=== PATIENT | male | born 1955 | race Caucasian/White ===

== ENCOUNTER 2020-08-29 14:14 | Emergency (ER) | payer OTHER ==
[~2020-08-29] VITALS: Ht 177.8 cm; Wt 84.8 kg
[2020-08-29 14:22] VITALS: BP 137/71
[2020-08-29 15:21] LABS: Basophils # (auto) 0.1 10 ^3/uL (0-0.2); Eosinophils # (auto) 0.1 10 ^3/uL (0-0.8); Eosinophils % (auto) 1.9 % (0.0-7.0); Hemoglobin 15.2 g/dL (13.5-17.5); Lymphocytes # (auto) 2.1 10 ^3/uL (0.4-5.4)
[2020-08-29 15:22] LABS: Basophils % (auto) 1.2 % (0.0-2.0); Hematocrit 42.2 % (41.0-53.0); Lymphocytes % (auto) 36.8 % (10.0-50.0); Mean Corpuscular Hemoglobin 36.4 pg (28.0-32.0); Mean Corpuscular Hgb Conc. 35.9 g/dL (32.0-36.0); Mean Corpuscular Volume 101.5 fL (80.0-100.0); Monocytes # (auto) 0.6 10 ^3/uL (0-1.3); Monocytes % (auto) 10.9 % (0.0-12.0); Neutrophils # (auto) 2.9 10 ^3/uL (1.6-8.6); Neutrophils % (auto) 49.2 % (37.0-80.0); Nucleated Red Blood Cells % 0.3 %; Platelet Count (auto) 186 10^3/uL (140-450); Red Blood Cells 4.16 10^6/uL (4.5-5.90); Red Cell Distribution Width 12.4 % (11.8-14.3); White Blood Cell 5.8 10^3/uL (4.4-10.8)
[2020-08-29 15:37] LABS: Albumin 3.7 g/dL (3.4-5.0); Anion Gap 5 (5-15); Blood Urea Nitrogen 19 mg/dL (7-18); Calcium 8.6 mg/dL (8.5-10.1); Carbon Dioxide 24 mmol/L (21-32); Chloride 108 mmol/L (98-107); Glucose 92 mg/dL (74-106); Magnesium 2.3 mg/dL (1.6-2.6); Potassium 4.2 mmol/L (3.5-5.1); Sodium 137 mmol/L (136-145)
[2020-08-29 15:43] LABS: Alanine Aminotransferase 229 U/L (16-61); Alkaline Phosphatase 87 U/L (45-117); Aspartate Aminotransferase 134 U/L (15-37); BUN/Creatinine Ratio 19.2; Bilirubin, Total 0.9 mg/dL (0.2-1.0); GFR African American 98 mL/min; GFR Non-African American 81 mL/min; INR 1.01 (0.9-1.15); Lactate Dehydrogenase 319 U/L (87-241)
== END 2020-08-29 17:32 | disposition home or self-care (01) ==
LOC: ER 14:14
DX: R55 Syncope and collapse (principal); F17.210 Nicotine dependence, cigarettes, uncomplicated; I10 Essential (primary) hypertension
CPT/HCPCS: 36415; 71046; 80053; 83605; 83615; 83735; 83880; 84484; 85025; 85610; 93005

== ENCOUNTER 2021-06-30 11:15 | Inpatient (IN) | payer BC, OTHER ==
[~2021-06-30] VITALS: Ht 177.8 cm; Wt 79.3 kg
[2021-06-30 12:24] LABS: Nucleated Red Blood Cells % 0.3 %; Red Blood Cells 4.21 10^6/uL (4.5-5.90)
[2021-06-30 12:26] LABS: Basophils # (auto) 0.1 10 ^3/uL (0-0.2); Basophils % (auto) 1.1 % (0.0-2.0); Eosinophils # (auto) 0.1 10 ^3/uL (0-0.8); Eosinophils % (auto) 1.2 % (0.0-7.0); Hematocrit 43.6 % (41.0-53.0); Lymphocytes % (auto) 30.1 % (10.0-50.0); Mean Corpuscular Hemoglobin 35.6 pg (28.0-32.0); Mean Corpuscular Hgb Conc. 34.5 g/dL (32.0-36.0); Mean Corpuscular Volume 103.4 fL (80.0-100.0); Monocytes # (auto) 0.7 10 ^3/uL (0-1.3); Monocytes % (auto) 10.1 % (0.0-12.0); Neutrophils # (auto) 3.9 10 ^3/uL (1.6-8.6); Neutrophils % (auto) 57.5 % (37.0-80.0); Red Cell Distribution Width 12.3 % (11.8-14.3); White Blood Cell 6.8 10^3/uL (4.4-10.8)
[2021-06-30 12:36] LABS: Potassium 4.1 mmol/L (3.5-5.1)
[2021-06-30 12:46] LABS: Albumin 3.6 g/dL (3.4-5.0); BUN/Creatinine Ratio 23.3; Bilirubin, Total 1.3 mg/dL (0.2-1.0); Total Protein 7.9 g/dL (6.4-8.2)
[2021-06-30] MEDS ORDERED: MORPHINE SULFATE INJECTION 2 MG/ML SYRG IV PRN ×3 (13:15→15:15)
[2021-06-30] MEDS ORDERED: NITROGLYCERIN 0.4 MG SL TAB SL PRN ×2 (13:15→15:15)
[2021-06-30] MEDS ORDERED: HEPARIN 1,000 UNITS/ml 1ML VIAL IV ONE (14:00)
[2021-06-30] MEDS ORDERED: ENAL10TA13 PO (14:33)
[2021-06-30] MEDS ORDERED: FLUT50SP NAS (14:33)
[2021-06-30] MEDS ORDERED: POM INH (14:33)
[2021-06-30] MEDS ORDERED: POM PO (14:33)
[2021-06-30] MEDS ORDERED: CLINDAMYCIN 600MG IV 50 ML IV ONE (14:45)
[2021-06-30] MEDS ORDERED: METOPROLOL SUCCINATE XL 50 MG TAB PO ONE (14:45)
[2021-06-30] MEDS ORDERED: ATORVASTATIN 20 MG TAB PO ONE (14:45)
[2021-06-30] MEDS ORDERED: BUDESONIDE (INHALATION) 0.5 MG/2 ML NEB NEB ONE (14:45)
[2021-06-30] MEDS ORDERED: ACETYLCYSTEINE 10 %(100MG/ML) SOL 4ML NEB ONE (14:45)
[2021-06-30] MEDS ORDERED: BENAZEPRIL HCL 10 MG TAB PO ONE (14:45)
[2021-06-30] MEDS ORDERED: SODIUM CHLORIDE 0.9% 500 ML IV ONE (15:00)
[2021-06-30] MEDS ORDERED: HYDROcodone-ACET 5/325MG TAB PO PRN (15:15)
[2021-06-30] MEDS ORDERED: DOCUSATE SOD 100 MG CAP PO PRN (15:15)
[2021-06-30] MEDS ORDERED: ALBUTEROL SULF 2.5 MG/0.5ML(0.5%) NEB SOLN NEB ONE (15:15)
[2021-06-30] MEDS ORDERED: ALUM & MAG HYDROX-SIMETH LIQ(MAALOX) 30 ML PO PRN (15:15)
[2021-06-30] MEDS ORDERED: ACETAMINOPHEN 325 MG TAB PO PRN (15:15)
[2021-06-30] MEDS ORDERED: ONDANSETRON HCL 4 MG/2 ML VIAL IV PRN (15:15)
[2021-06-30] MEDS ORDERED: LORazepam 0.5 MG TAB PO PRN (15:15)
[2021-06-30] MEDS ORDERED: IPRATROPIUM BROM 0.5 MG/2.5ML INH SOL ONE (15:19)
[2021-06-30] MEDS ORDERED: BUDESONIDE (INHALATION) 0.5 MG/2 ML NEB ONE (15:19)
[2021-06-30] MEDS ORDERED: ACETYLCYSTEINE 10 %(100MG/ML) SOL 4ML ONE (15:19)
[2021-06-30 15:20] VITALS: BP 119/83
[2021-06-30] MEDS ORDERED: IOHEXOL 350 MG/ML 100ML IJ ONE ×2 (15:53→18:52)
[2021-06-30] MEDS ORDERED: cefTRIAXone 1GM/50ML D5W 50 ML IV ONE (16:00)
[2021-06-30] MEDS: FUROSEMIDE 20 MG/2 ML VIAL IV SCH (18:00)
[2021-06-30] MEDS: SODIUM CHLORIDE 0.9% 1,000 ML IV SCH (19:01)
[2021-06-30] MEDS: CLINDAMYCIN 600MG IV 50 ML IV SCH (21:01)
[2021-06-30] MEDS: POTASSIUM CHL 20 Meq TABLET PO SCH (21:02)
[2021-06-30] MEDS: FAMOTIDINE (10MG/ML) 2ML VL IV SCH (21:02)
[2021-06-30] MEDS: ATORVASTATIN 20 MG TAB PO SCH (21:02)
[2021-07-01] MEDS: IPRATROPIUM BROM 0.5 MG/2.5ML INH SOL NEB SCH ×7 (02:00→23:34)
[2021-07-01 04:20] LABS: Urine Bacteria NONE SEEN /hpf (None Seen); Urine Blood Negative /uL (Negative); Urine Specific Gravity 1.025 (1.001-1.035); Urine WBC 1 /hpf (0 - 3)
[2021-07-01 04:28] LABS: Amphetamine Screen, Urine NEGATIVE (NEGATIVE); Barbiturate Scree,Urine NEGATIVE (NEGATIVE); Benzodiazephine Screen, Urine NEGATIVE (NEGATIVE); Cannabinoid Screen, Urine NEGATIVE (NEGATIVE); Cocaine Screen, Urine NEGATIVE (NEGATIVE); Opiate Scree,Urine NEGATIVE (NEGATIVE); Phencyclidine Screen, Urine NEGATIVE (NEGATIVE)
[2021-07-01] MEDS: BUDESONIDE (INHALATION) 0.5 MG/2 ML NEB NEB SCH ×3 (04:37→23:34)
[2021-07-01] MEDS: ACETYLCYSTEINE 10 %(100MG/ML) SOL 4ML NEB SCH ×4 (04:38→19:24)
[2021-07-01 04:47] LABS: Alcohol, Urine < 3.0 mg/dL (0-10)
[2021-07-01 05:20] VITALS: BP 103/68
[2021-07-01 05:30] VITALS: BP 103/68
[2021-07-01] MEDS: ENOXAPARIN SOD 80 MG/0.8ML SYRINGE SC SCH ×2 (05:59→17:43)
[2021-07-01] MEDS: CLINDAMYCIN 600MG IV 50 ML IV SCH ×3 (05:59→21:30)
[2021-07-01] MEDS: FUROSEMIDE 20 MG/2 ML VIAL IV SCH ×2 (06:00→17:45)
[2021-07-01 08:51] VITALS: BP 104/66
[2021-07-01] MEDS: FAMOTIDINE (10MG/ML) 2ML VL IV SCH ×2 (09:17→21:31)
[2021-07-01] MEDS: ASPirin 81 mg TAB PO SCH (09:17)
[2021-07-01] MEDS: METOPROLOL SUCCINATE XL 50 MG TAB PO SCH (09:18)
[2021-07-01] MEDS: BENAZEPRIL HCL 10 MG TAB PO SCH (09:19)
[2021-07-01] MEDS: POTASSIUM CHL 20 Meq TABLET PO SCH ×2 (09:19→21:31)
[2021-07-01] MEDS: cefTRIAXone 1GM/50ML D5W 50 ML IV SCH (09:20)
[2021-07-01 09:59] LABS: Eosinophils # (auto) 0.1 10 ^3/uL (0-0.8); Nucleated Red Blood Cells % 0.1 %
[2021-07-01 10:01] LABS: Basophils # (auto) 0.1 10 ^3/uL (0-0.2); Basophils % (auto) 2.3 % (0.0-2.0); Eosinophils % (auto) 2.4 % (0.0-7.0); Hematocrit 39.6 % (41.0-53.0); Hemoglobin 13.9 g/dL (13.5-17.5); Lymphocytes # (auto) 1.5 10 ^3/uL (0.4-5.4); Lymphocytes % (auto) 33.5 % (10.0-50.0); Mean Corpuscular Hemoglobin 35.9 pg (28.0-32.0); Mean Corpuscular Volume 102.6 fL (80.0-100.0); Monocytes # (auto) 0.6 10 ^3/uL (0-1.3); Neutrophils # (auto) 2.2 10 ^3/uL (1.6-8.6); Neutrophils % (auto) 48.8 % (37.0-80.0); Red Blood Cells 3.86 10^6/uL (4.5-5.90); Red Cell Distribution Width 12.3 % (11.8-14.3); White Blood Cell 4.5 10^3/uL (4.4-10.8)
[2021-07-01 10:14] LABS: INR 1.1 (0.9-1.15); Partial Thromboplastin Time 34.1 sec (23.6-33.0)
[2021-07-01 10:17] LABS: Albumin 3.1 g/dL (3.4-5.0); Calcium 8.8 mg/dL (8.5-10.1); Magnesium 2.4 mg/dL (1.6-2.6); Potassium 4.2 mmol/L (3.5-5.1)
[2021-07-01 10:23] LABS: Bilirubin, Total 1.4 mg/dL (0.2-1.0); Phosphorus 3.8 mg/dL (2.5-4.90); Total Protein 7.2 g/dL (6.4-8.2)
[2021-07-01 13:00] VITALS: BP 91/63
[2021-07-01] MEDS: SODIUM CHLORIDE 0.9% 1,000 ML IV SCH (15:15)
[2021-07-01 16:47] VITALS: BP 116/74
[2021-07-01] MEDS: ATORVASTATIN 20 MG TAB PO SCH (21:31)
[2021-07-01 22:00] VITALS: BP 98/65
[2021-07-02] MEDS: IPRATROPIUM BROM 0.5 MG/2.5ML INH SOL NEB SCH ×6 (02:00→22:55)
[2021-07-02 05:00] VITALS: BP 105/66
[2021-07-02] MEDS: ENOXAPARIN SOD 80 MG/0.8ML SYRINGE SC SCH ×2 (06:07→17:25)
[2021-07-02] MEDS: CLINDAMYCIN 600MG IV 50 ML IV SCH ×3 (06:07→22:22)
[2021-07-02] MEDS: FUROSEMIDE 20 MG/2 ML VIAL IV SCH ×2 (06:08→17:27)
[2021-07-02] MEDS: ACETYLCYSTEINE 10 %(100MG/ML) SOL 4ML NEB SCH ×3 (06:39→18:41)
[2021-07-02] MEDS: BUDESONIDE (INHALATION) 0.5 MG/2 ML NEB NEB SCH ×2 (06:39→18:41)
[2021-07-02 09:00] VITALS: BP 102/68
[2021-07-02] MEDS: cefTRIAXone 1GM/50ML D5W 50 ML IV SCH (09:14)
[2021-07-02] MEDS: POTASSIUM CHL 20 Meq TABLET PO SCH ×2 (09:15→22:23)
[2021-07-02] MEDS: ASPirin 81 mg TAB PO SCH (09:15)
[2021-07-02] MEDS: FAMOTIDINE (10MG/ML) 2ML VL IV SCH ×2 (09:15→22:22)
[2021-07-02] MEDS: BENAZEPRIL HCL 10 MG TAB PO SCH (09:27)
[2021-07-02] MEDS: METOPROLOL SUCCINATE XL 50 MG TAB PO SCH (09:27)
[2021-07-02 13:00] VITALS: BP 112/74
[2021-07-02] MEDS: SODIUM CHLORIDE 0.9% 1,000 ML IV SCH (13:52)
[2021-07-02 17:00] VITALS: BP 115/73
[2021-07-02 22:00] VITALS: BP 103/72
[2021-07-02] MEDS: ATORVASTATIN 20 MG TAB PO SCH (22:00)
[2021-07-03 05:00] VITALS: BP 116/68
[2021-07-03] MEDS: ENOXAPARIN SOD 80 MG/0.8ML SYRINGE SC SCH ×2 (05:00→17:36)
[2021-07-03] MEDS: FUROSEMIDE 20 MG/2 ML VIAL IV SCH ×2 (05:41→17:36)
[2021-07-03] MEDS: BUDESONIDE (INHALATION) 0.5 MG/2 ML NEB NEB SCH ×2 (05:57→18:52)
[2021-07-03] MEDS: ACETYLCYSTEINE 10 %(100MG/ML) SOL 4ML NEB SCH ×5 (05:57→22:04)
[2021-07-03] MEDS: IPRATROPIUM BROM 0.5 MG/2.5ML INH SOL NEB SCH ×7 (05:57→22:04)
[2021-07-03] MEDS: CLINDAMYCIN 600MG IV 50 ML IV SCH ×3 (06:04→21:49)
[2021-07-03 06:17] LABS: Cholesterol 129 mg/dL (< 200); HDL Cholesterol 34 mg/dL (40-59); LDL Cholesterol 86 mg/dL (< 100); Triglycerides 85 mg/dL (< 150)
[2021-07-03 07:52] LABS: Basophils # (auto) 0.1 10 ^3/uL (0-0.2); Lymphocytes # (auto) 1.5 10 ^3/uL (0.4-5.4); Monocytes # (auto) 0.7 10 ^3/uL (0-1.3); Neutrophils # (auto) 2.3 10 ^3/uL (1.6-8.6)
[2021-07-03 07:54] LABS: Basophils % (auto) 2.7 % (0.0-2.0); Eosinophils # (auto) 0.2 10 ^3/uL (0-0.8); Eosinophils % (auto) 3.4 % (0.0-7.0); Hematocrit 40.6 % (41.0-53.0); Hemoglobin 14.1 g/dL (13.5-17.5); Lymphocytes % (auto) 31.5 % (10.0-50.0); Mean Corpuscular Hemoglobin 36.1 pg (28.0-32.0); Mean Corpuscular Hgb Conc. 34.9 g/dL (32.0-36.0); Mean Corpuscular Volume 103.7 fL (80.0-100.0); Monocytes % (auto) 14.2 % (0.0-12.0); Neutrophils % (auto) 48.2 % (37.0-80.0); Nucleated Red Blood Cells % 0.1 %; Red Blood Cells 3.91 10^6/uL (4.5-5.90); White Blood Cell 4.7 10^3/uL (4.4-10.8)
[2021-07-03 07:55] LABS: Calcium 8.8 mg/dL (8.5-10.1); Magnesium 2.4 mg/dL (1.6-2.6); Potassium 4.4 mmol/L (3.5-5.1)
[2021-07-03 07:59] LABS: Bilirubin, Total 0.8 mg/dL (0.2-1.0); Total Protein 6.8 g/dL (6.4-8.2)
[2021-07-03 08:30] VITALS: BP 109/73
[2021-07-03] MEDS: FAMOTIDINE (10MG/ML) 2ML VL IV SCH ×2 (10:00→21:50)
[2021-07-03] MEDS: POTASSIUM CHL 20 Meq TABLET PO SCH ×2 (10:00→21:50)
[2021-07-03] MEDS: BENAZEPRIL HCL 10 MG TAB PO SCH (10:00)
[2021-07-03] MEDS: METOPROLOL SUCCINATE XL 50 MG TAB PO SCH (10:00)
[2021-07-03] MEDS: cefTRIAXone 1GM/50ML D5W 50 ML IV SCH (10:09)
[2021-07-03] MEDS: ASPirin 81 mg TAB PO SCH (10:13)
[2021-07-03 11:40] VITALS: BP 112/74
[2021-07-03 13:34] LABS: Hepatitis A Ab IgM Negative
[2021-07-03 13:50] LABS: Hepatitis B Surface Antigen Negative (Negative)
[2021-07-03] MEDS ORDERED: fentaNYL CITRATE 100 MCG/2 ML VL ONE (13:55)
[2021-07-03] MEDS ORDERED: MIDAZOLAM HCL 2MG/2ML 2ml VIAL (1mg/ml) ONE (13:56)
[2021-07-03] MEDS ORDERED: ANGIOMAX 250 MG VIAL IV ONE (13:56)
[2021-07-03] MEDS ORDERED: SODIUM CHL 0.9% 0 ML ONE (13:56)
[2021-07-03 13:59] LABS: Hepatitis B Core IgM Negative
[2021-07-03] MEDS ORDERED: IOHEXOL 350 MG/ML 100ML IJ ONE (14:03)
[2021-07-03] MEDS ORDERED: LIDOCAINE 2%HCL (LOCAL ANESTH.) INJ 20ML MDV ONE (14:03)
[2021-07-03 14:20] LABS: Hepatitis C Antibody Positive (Negative)
[2021-07-03 17:00] VITALS: BP 115/75
[2021-07-03] MEDS: SODIUM CHLORIDE 0.9% 1,000 ML IV SCH (17:36)
[2021-07-03] MEDS: ATORVASTATIN 20 MG TAB PO SCH (21:50)
[2021-07-03 22:00] VITALS: BP 104/63
[2021-07-04 05:00] VITALS: BP 102/68
[2021-07-04] MEDS: CLINDAMYCIN 600MG IV 50 ML IV SCH ×3 (05:43→21:24)
[2021-07-04] MEDS: FUROSEMIDE 20 MG/2 ML VIAL IV SCH ×2 (05:44→18:00)
[2021-07-04] MEDS: IPRATROPIUM BROM 0.5 MG/2.5ML INH SOL NEB SCH ×5 (06:00→22:19)
[2021-07-04] MEDS: ACETYLCYSTEINE 10 %(100MG/ML) SOL 4ML NEB SCH ×3 (06:00→22:19)
[2021-07-04 08:41] LABS: Basophils # (auto) 0.1 10 ^3/uL (0-0.2); Basophils % (auto) 2.2 % (0.0-2.0); Eosinophils # (auto) 0.1 10 ^3/uL (0-0.8); Eosinophils % (auto) 2.8 % (0.0-7.0); Hematocrit 41.6 % (41.0-53.0); Hemoglobin 14.5 g/dL (13.5-17.5); Lymphocytes # (auto) 1.3 10 ^3/uL (0.4-5.4); Lymphocytes % (auto) 29.5 % (10.0-50.0); Mean Corpuscular Hemoglobin 35.9 pg (28.0-32.0); Mean Corpuscular Hgb Conc. 34.8 g/dL (32.0-36.0); Mean Corpuscular Volume 103.1 fL (80.0-100.0); Monocytes # (auto) 0.6 10 ^3/uL (0-1.3); Monocytes % (auto) 14.3 % (0.0-12.0); Neutrophils # (auto) 2.3 10 ^3/uL (1.6-8.6); Neutrophils % (auto) 51.2 % (37.0-80.0); Nucleated Red Blood Cells % 0.1 %; Red Blood Cells 4.04 10^6/uL (4.5-5.90); Red Cell Distribution Width 12.4 % (11.8-14.3); White Blood Cell 4.5 10^3/uL (4.4-10.8)
[2021-07-04 08:57] LABS: Albumin 3.1 g/dL (3.4-5.0); Calcium 8.7 mg/dL (8.5-10.1); Potassium 4.5 mmol/L (3.5-5.1)
[2021-07-04 09:00] VITALS: BP 104/67
[2021-07-04 09:00] LABS: BUN/Creatinine Ratio 20.2; Bilirubin, Total 0.8 mg/dL (0.2-1.0)
[2021-07-04] MEDS: ASPirin 81 mg TAB PO SCH (09:43)
[2021-07-04] MEDS: cefTRIAXone 1GM/50ML D5W 50 ML IV SCH (09:43)
[2021-07-04] MEDS: FAMOTIDINE (10MG/ML) 2ML VL IV SCH ×2 (09:43→21:24)
[2021-07-04] MEDS: METOPROLOL SUCCINATE XL 50 MG TAB PO SCH (09:44)
[2021-07-04] MEDS: BENAZEPRIL HCL 10 MG TAB PO SCH (09:44)
[2021-07-04] MEDS: POTASSIUM CHL 20 Meq TABLET PO SCH ×2 (09:44→21:24)
[2021-07-04] MEDS: SODIUM CHLORIDE 0.9% 1,000 ML IV SCH (09:54)
[2021-07-04] MEDS: BUDESONIDE (INHALATION) 0.5 MG/2 ML NEB NEB SCH ×2 (10:06→18:07)
[2021-07-04] MEDS ORDERED: MIDAZOLAM HCL 2MG/2ML 2ml VIAL (1mg/ml) IV ONE (12:00)
[2021-07-04 13:00] VITALS: BP 104/73
[2021-07-04 17:00] VITALS: BP 108/72
[2021-07-04] MEDS: ATORVASTATIN 20 MG TAB PO SCH (21:24)
[2021-07-04 22:00] VITALS: BP 100/64
[2021-07-05 05:00] VITALS: BP 114/69
[2021-07-05] MEDS: CLINDAMYCIN 600MG IV 50 ML IV SCH ×2 (05:24→14:34)
[2021-07-05] MEDS: ACETYLCYSTEINE 10 %(100MG/ML) SOL 4ML NEB SCH ×2 (06:00→14:50)
[2021-07-05] MEDS: FUROSEMIDE 20 MG/2 ML VIAL IV SCH (06:00)
[2021-07-05] MEDS: IPRATROPIUM BROM 0.5 MG/2.5ML INH SOL NEB SCH ×3 (06:00→14:50)
[2021-07-05] MEDS: FAMOTIDINE (10MG/ML) 2ML VL IV SCH (08:46)
[2021-07-05] MEDS: cefTRIAXone 1GM/50ML D5W 50 ML IV SCH (08:46)
[2021-07-05] MEDS: ASPirin 81 mg TAB PO SCH (08:49)
[2021-07-05] MEDS: POTASSIUM CHL 20 Meq TABLET PO SCH (08:50)
[2021-07-05] MEDS: METOPROLOL SUCCINATE XL 50 MG TAB PO SCH (08:50)
[2021-07-05] MEDS: BENAZEPRIL HCL 10 MG TAB PO SCH (08:50)
[2021-07-05 09:30] VITALS: BP 114/69
[2021-07-05] MEDS: BUDESONIDE (INHALATION) 0.5 MG/2 ML NEB NEB SCH (10:22)
[2021-07-05 12:00] VITALS: BP 106/67
[2021-07-05 12:30] VITALS: BP 118/65
[2021-07-05] MEDS: SODIUM CHLORIDE 0.9% 1,000 ML IV SCH (15:00)
[2021-07-05 15:04] VITALS: BP 114/69
== END 2021-07-05 16:30 | disposition home or self-care (01) | DRG 286 ==
LOC: ER 11:15 → TELE 13:10 → TELE-WESTW 07-01 05:10
PROVIDERS: ADMIT Hospitalist; ATTEND Nurse Practitioner
PROC: 4A023N7 Measurement of Cardiac Sampling and Pressure, Left Heart, Percutaneous Approach (ICD-10-PCS; principal; 2021-07-03)
PROC: B2111ZZ Fluoroscopy of Multiple Coronary Arteries using Low Osmolar Contrast (ICD-10-PCS; 2021-07-03)
PROC: B2151ZZ Fluoroscopy of Left Heart using Low Osmolar Contrast (ICD-10-PCS; 2021-07-03)
PROC: B4101ZZ Fluoroscopy of Abdominal Aorta using Low Osmolar Contrast (ICD-10-PCS; 2021-07-03)
PROC: B24BZZ4 Ultrasonography of Heart with Aorta, Transesophageal (ICD-10-PCS; 2021-07-04)
DX: I11.0 Hypertensive heart disease with heart failure (principal); I50.23 Acute on chronic systolic (congestive) heart failure; M35.1 Other overlap syndromes; J84.10 Pulmonary fibrosis, unspecified; I95.2 Hypotension due to drugs; E78.5 Hyperlipidemia, unspecified; T46.4X5A Adverse effect of angiotensin-converting-enzyme inhibitors, initial encounter; F12.90 Cannabis use, unspecified, uncomplicated; F17.200 Nicotine dependence, unspecified, uncomplicated; I08.0 Rheumatic disorders of both mitral and aortic valves; I44.7 Left bundle-branch block, unspecified; J44.9 Chronic obstructive pulmonary disease, unspecified; Z20.822 Contact with and (suspected) exposure to COVID-19; Y92.89 Other specified places as the place of occurrence of the external cause; Z86.711 Personal history of pulmonary embolism; Z95.2 Presence of prosthetic heart valve
CPT/HCPCS: 36415; 71046; 71275; 75625; 76705; 76881; 80053; 80061; 80074; 80307; 81001; 82728; 83036; 83735; 83880; 84100; 84443; 84484; 85025; 85379; 85610; 85730; 86141; 87040; 87086; 87426; 93005; 93306; 93312; 93458; 94640; 99152; 99153; 99291; G0378; J0696; J2250; J3490

== ENCOUNTER 2021-08-07 07:06 | Inpatient (IN) | payer BC ==
[~2021-08-07] VITALS: Ht 177.8 cm; Wt 89.0 kg
[~2021-08-07 07:06] MED LIST: ENAL10TA13 PO; FLUT50SP NAS; POM INH; POM PO
[2021-08-07] MEDS ORDERED: cefTRIAXone 1GM/50ML D5W 50 ML IV ONE (08:45)
[2021-08-07] MEDS ORDERED: DexAMETHasone SOD PHOS 10MG/1ML VIAL INJ IV ONE (08:45)
[2021-08-07] MEDS ORDERED: AZITHROMYCIN 500MG/ 250ML 250 ML IV ONE (08:45)
[2021-08-07 09:15] LABS: Eosinophils # (auto) 0 10 ^3/uL (0-0.8); Eosinophils % (auto) 0.5 % (0.0-7.0); Lymphocytes # (auto) 1.1 10 ^3/uL (0.4-5.4); Monocytes # (auto) 0.4 10 ^3/uL (0-1.3); Neutrophils # (auto) 3.7 10 ^3/uL (1.6-8.6)
[2021-08-07 09:18] LABS: Basophils # (auto) 0 10 ^3/uL (0-0.2); Basophils % (auto) 0.8 % (0.0-2.0); Hematocrit 41.9 % (41.0-53.0); Hemoglobin 14.3 g/dL (13.5-17.5); Lymphocytes % (auto) 21.4 % (10.0-50.0); Mean Corpuscular Hemoglobin 35.6 pg (28.0-32.0); Mean Corpuscular Hgb Conc. 34.2 g/dL (32.0-36.0); Mean Corpuscular Volume 104.1 fL (80.0-100.0); Monocytes % (auto) 7.5 % (0.0-12.0); Neutrophils % (auto) 69.8 % (37.0-80.0); Nucleated Red Blood Cells % 0.2 %; Red Blood Cells 4.02 10^6/uL (4.5-5.90); Red Cell Distribution Width 13.6 % (11.8-14.3); White Blood Cell 5.2 10^3/uL (4.4-10.8)
[2021-08-07 09:29] LABS: Albumin 3.4 g/dL (3.4-5.0); Calcium 8.4 mg/dL (8.5-10.1); Magnesium 2.2 mg/dL (1.6-2.6); Potassium 4.1 mmol/L (3.5-5.1)
[2021-08-07 09:33] LABS: BUN/Creatinine Ratio 21.9; Bilirubin, Total 1.4 mg/dL (0.2-1.0); Total Protein 7.5 g/dL (6.4-8.2)
[2021-08-07 10:02] LABS: INR 1.08 (0.9-1.15); Partial Thromboplastin Time 27.1 sec (23.6-33.0)
[2021-08-07] MEDS ORDERED: DOCUSATE SOD 100 MG CAP PO PRN (13:30)
[2021-08-07] MEDS ORDERED: HYDROcodone-ACET 5/325MG TAB PO PRN (13:30)
[2021-08-07] MEDS ORDERED: ONDANSETRON HCL 4 MG/2 ML VIAL IV PRN (13:30)
[2021-08-07] MEDS ORDERED: ACETAMINOPHEN 325 MG TAB PO PRN (13:30)
[2021-08-07] MEDS ORDERED: MORPHINE SULFATE 4 MG/ML SYR/VIAL IV PRN (13:30)
[2021-08-07] MEDS ORDERED: MORPHINE SULFATE INJECTION 2 MG/ML SYRG IV PRN (13:30)
[2021-08-07] MEDS ORDERED: NITROGLYCERIN 0.4 MG SL TAB SL PRN (13:30)
[2021-08-07 22:00] VITALS: BP 110/81
[2021-08-07 22:01] VITALS: BP 105/60
[2021-08-07] MEDS: TEMAZEPAM 15 MG CAP PO PRN (22:25)
[2021-08-07] MEDS: ASCORBIC ACID 500 MG TAB PO SCH (22:25)
[2021-08-08 05:00] VITALS: BP 100/70
[2021-08-08 05:53] LABS: Basophils # (auto) 0 10 ^3/uL (0-0.2); Eosinophils # (auto) 0 10 ^3/uL (0-0.8); Monocytes # (auto) 0.3 10 ^3/uL (0-1.3); Neutrophils # (auto) 3.9 10 ^3/uL (1.6-8.6); White Blood Cell 5.4 10^3/uL (4.4-10.8)
[2021-08-08 05:56] LABS: Basophils % (auto) 0.2 % (0.0-2.0); Hematocrit 39.4 % (41.0-53.0); Hemoglobin 13.5 g/dL (13.5-17.5); Lymphocytes # (auto) 1.2 10 ^3/uL (0.4-5.4); Lymphocytes % (auto) 21.2 % (10.0-50.0); Mean Corpuscular Hemoglobin 36.1 pg (28.0-32.0); Mean Corpuscular Hgb Conc. 34.3 g/dL (32.0-36.0); Mean Corpuscular Volume 105.1 fL (80.0-100.0); Monocytes % (auto) 6.3 % (0.0-12.0); Neutrophils % (auto) 72.3 % (37.0-80.0); Nucleated Red Blood Cells % 0.2 %; Red Blood Cells 3.75 10^6/uL (4.5-5.90); Red Cell Distribution Width 13.2 % (11.8-14.3)
[2021-08-08 06:14] LABS: Albumin 2.9 g/dL (3.4-5.0); Calcium 8.3 mg/dL (8.5-10.1); Potassium 4.4 mmol/L (3.5-5.1)
[2021-08-08 06:16] LABS: BUN/Creatinine Ratio 23.3
[2021-08-08 06:19] LABS: Bilirubin, Total 1.4 mg/dL (0.2-1.0); Total Protein 6.2 g/dL (6.4-8.2)
[2021-08-08 09:00] VITALS: BP 101/73
[2021-08-08] MEDS: ASCORBIC ACID 500 MG TAB PO SCH ×2 (10:47→22:00)
[2021-08-08] MEDS: ENOXAPARIN SOD 40 MG/0.4 ML SYRINGE SC SCH (10:47)
[2021-08-08] MEDS: MULTIPLE VITAMIN TAB PO SCH (10:47)
[2021-08-08] MEDS: ZINC SULFATE 220mg CAP or TAB PO SCH (10:47)
[2021-08-08 13:00] VITALS: BP 128/81
[2021-08-08 16:44] VITALS: BP 128/86
[2021-08-08 22:00] VITALS: BP 95/73
[2021-08-08] MEDS: TEMAZEPAM 15 MG CAP PO PRN (22:00)
[2021-08-09 05:00] VITALS: BP 104/71
[2021-08-09 09:00] VITALS: BP 124/86
[2021-08-09] MEDS: ASCORBIC ACID 500 MG TAB PO SCH ×2 (09:31→21:48)
[2021-08-09] MEDS: ENOXAPARIN SOD 40 MG/0.4 ML SYRINGE SC SCH (09:31)
[2021-08-09] MEDS: ZINC SULFATE 220mg CAP or TAB PO SCH (09:31)
[2021-08-09] MEDS: MULTIPLE VITAMIN TAB PO SCH (09:31)
[2021-08-09 13:00] VITALS: BP 133/81
[2021-08-09 17:00] VITALS: BP 106/76
[2021-08-09 22:00] VITALS: BP 102/69
[2021-08-10 05:00] VITALS: BP 106/55
[2021-08-10 08:00] VITALS: BP 128/84
[2021-08-10 09:00] VITALS: BP 128/84
[2021-08-10] MEDS: ASCORBIC ACID 500 MG TAB PO SCH ×2 (10:20→21:08)
[2021-08-10] MEDS: MULTIPLE VITAMIN TAB PO SCH (10:20)
[2021-08-10] MEDS: ZINC SULFATE 220mg CAP or TAB PO SCH (10:20)
[2021-08-10] MEDS: ENOXAPARIN SOD 40 MG/0.4 ML SYRINGE SC SCH (10:20)
[2021-08-10 13:00] VITALS: BP 105/73
[2021-08-10 17:00] VITALS: BP 110/81
[2021-08-10] MEDS: TEMAZEPAM 15 MG CAP PO PRN (21:08)
[2021-08-10 22:00] VITALS: BP 125/89
== END 2021-08-10 23:40 | disposition short-term general hospital (02) | DRG 307 ==
LOC: ER 07:06 → OVERFLOW 14:09 → TELE-WESTW 21:21 → OBSVTOIN 08-08 22:14
PROVIDERS: ADMIT Internal Medicine; ATTEND Internal Medicine
DX: I35.0 Nonrheumatic aortic (valve) stenosis (principal); N17.9 Acute kidney failure, unspecified; I20.0 Unstable angina; I50.22 Chronic systolic (congestive) heart failure; F41.9 Anxiety disorder, unspecified; Z20.822 Contact with and (suspected) exposure to COVID-19; J45.909 Unspecified asthma, uncomplicated; Z82.49 Family history of ischemic heart disease and other diseases of the circulatory system
CPT/HCPCS: 36415; 71045; 80053; 83605; 83735; 83880; 84484; 85025; 85610; 85730; 87040; 87426; 93005; 96365; 96366; 96367; 96375; 99291; G0378; J0696; J1100

== ENCOUNTER 2021-08-21 17:05 | Inpatient (IN) | payer BC ==
[~2021-08-21] VITALS: Ht 177.8 cm; Wt 76.4 kg
[2021-08-21] MEDS ORDERED: FUROSEMIDE 40 MG/4 ML VIAL IV ONE (17:30)
[2021-08-21 19:46] LABS: Basophils # (auto) 0 10 ^3/uL (0-0.2); Basophils % (auto) 0.4 % (0.0-2.0); Eosinophils # (auto) 0 10 ^3/uL (0-0.8); Eosinophils % (auto) 0.3 % (0.0-7.0); Hematocrit 48.6 % (41.0-53.0); Hemoglobin 16.4 g/dL (13.5-17.5); Lymphocytes # (auto) 1.5 10 ^3/uL (0.4-5.4); Lymphocytes % (auto) 26.9 % (10.0-50.0); Mean Corpuscular Hemoglobin 29.4 pg (28.0-32.0); Mean Corpuscular Hgb Conc. 33.7 g/dL (32.0-36.0); Mean Corpuscular Volume 87.2 fL (80.0-100.0); Monocytes # (auto) 0.4 10 ^3/uL (0-1.3); Monocytes % (auto) 7.7 % (0.0-12.0); Neutrophils # (auto) 3.7 10 ^3/uL (1.6-8.6); Neutrophils % (auto) 64.7 % (37.0-80.0); Nucleated Red Blood Cells % 0.1 %; Red Blood Cells 5.57 10^6/uL (4.5-5.90); Red Cell Distribution Width 12.8 % (11.8-14.3); White Blood Cell 5.7 10^3/uL (4.4-10.8)
[2021-08-21 19:57] LABS: INR 1.06 (0.9-1.15); Partial Thromboplastin Time 27.1 sec (23.6-33.0)
[2021-08-21 21:11] LABS: BUN/Creatinine Ratio 18.6; Potassium 4.6 mmol/L (3.5-5.1)
[2021-08-21 21:12] LABS: Albumin 3.2 g/dL (3.4-5.0); Total Protein 6.1 g/dL (6.4-8.2)
[2021-08-21] MEDS ORDERED: DOCUSATE SOD 100 MG CAP PO PRN (22:30)
[2021-08-21] MEDS ORDERED: ONDANSETRON HCL 4 MG/2 ML VIAL IV PRN (22:30)
[2021-08-21] MEDS ORDERED: NITROGLYCERIN 0.4 MG SL TAB SL PRN (22:30)
[2021-08-21] MEDS ORDERED: ACETAMINOPHEN 325 MG TAB PO PRN (22:30)
[2021-08-21] MEDS ORDERED: TEMAZEPAM 15 MG CAP PO PRN (22:30)
[2021-08-21] MEDS ORDERED: MORPHINE SULFATE 4 MG/ML SYR/VIAL IV PRN (22:30)
[2021-08-21] MEDS ORDERED: HYDROcodone-ACET 5/325MG TAB PO PRN (22:30)
[2021-08-21] MEDS ORDERED: BUMETANIDE 2.5mg/10ml (0.25 mg/ml) INJ IV STA (22:32)
[2021-08-22] MEDS ORDERED: BUMETANIDE 2.5mg/10ml (0.25 mg/ml) INJ IV ONE ×3 (00:15→03:15)
[2021-08-22] MEDS: BUMETANIDE INJECTION 12.5 MG in GIVE UN-DILUTED 0 ML IV SCH ×2 (03:03→22:45)
[2021-08-22 07:42] LABS: Basophils # (auto) 0.1 10 ^3/uL (0-0.2); Basophils % (auto) 1.4 % (0.0-2.0); Eosinophils # (auto) 0.3 10 ^3/uL (0-0.8); Eosinophils % (auto) 3.6 % (0.0-7.0); Hematocrit 33.3 % (41.0-53.0); Hemoglobin 11.3 g/dL (13.5-17.5); Lymphocytes # (auto) 1.5 10 ^3/uL (0.4-5.4); Lymphocytes % (auto) 20.4 % (10.0-50.0); Mean Corpuscular Hgb Conc. 33.8 g/dL (32.0-36.0); Mean Corpuscular Volume 103.3 fL (80.0-100.0); Neutrophils # (auto) 4.6 10 ^3/uL (1.6-8.6); Neutrophils % (auto) 61.6 % (37.0-80.0); Nucleated Red Blood Cells % 0.1 %; Red Blood Cells 3.23 10^6/uL (4.5-5.90); Red Cell Distribution Width 13.5 % (11.8-14.3); White Blood Cell 7.5 10^3/uL (4.4-10.8)
[2021-08-22 08:02] LABS: Potassium 3.7 mmol/L (3.5-5.1)
[2021-08-22 08:09] LABS: Albumin 3.2 g/dL (3.4-5.0); BUN/Creatinine Ratio 18.9; Bilirubin, Total 1.6 mg/dL (0.2-1.0); Calcium 8.1 mg/dL (8.5-10.1); Total Protein 6.1 g/dL (6.4-8.2)
[2021-08-22] MEDS ORDERED: FLUT1AER17 INH (11:19)
[2021-08-22] MEDS: ENOXAPARIN SOD 40 MG/0.4 ML SYRINGE SC SCH (11:30)
[2021-08-22] MEDS: MULTIPLE VITAMIN TAB PO SCH (11:30)
[2021-08-22] MEDS: POTASSIUM CHL 20 Meq TABLET PO SCH ×2 (11:31→23:36)
[2021-08-22] MEDS: ASCORBIC ACID 500 MG TAB PO SCH ×2 (11:32→23:36)
[2021-08-22] MEDS: ZINC SULFATE 220mg CAP or TAB PO SCH (11:33)
[2021-08-22] MEDS ORDERED: FAMO-12 PO (11:35)
[2021-08-22] MEDS ORDERED: ATOR10TA52 PO (11:35)
[2021-08-22] MEDS ORDERED: DOCU100C10 PO (11:35)
[2021-08-22] MEDS ORDERED: FOLI1TAB6 PO (11:35)
[2021-08-22] MEDS ORDERED: MET25T PO (11:35)
[2021-08-22] MEDS ORDERED: FURO40TA4 PO (11:35)
[2021-08-22 17:14] VITALS: BP 91/63
[2021-08-22 20:00] VITALS: BP 96/68
[2021-08-22 22:00] VITALS: BP 96/68
[2021-08-23 05:00] VITALS: BP 119/72
[2021-08-23 09:08] VITALS: BP 96/75
[2021-08-23] MEDS: ASCORBIC ACID 500 MG TAB PO SCH ×2 (10:52→21:34)
[2021-08-23] MEDS: ZINC SULFATE 220mg CAP or TAB PO SCH (10:52)
[2021-08-23] MEDS: MULTIPLE VITAMIN TAB PO SCH (10:52)
[2021-08-23] MEDS: POTASSIUM CHL 20 Meq TABLET PO SCH ×2 (10:52→21:35)
[2021-08-23] MEDS: ENOXAPARIN SOD 40 MG/0.4 ML SYRINGE SC SCH (10:53)
[2021-08-23] MEDS: BUMETANIDE 2.5mg/10ml (0.25 mg/ml) INJ IV SCH ×2 (11:08→17:45)
[2021-08-23 13:00] VITALS: BP 102/75
[2021-08-23 17:07] VITALS: BP 121/75
[2021-08-23] MEDS: ACETAMINOPHEN 500 MG TAB PO PRN (17:46)
[2021-08-23 20:00] VITALS: BP 107/69
[2021-08-23 22:00] VITALS: BP 107/69
[2021-08-24 05:00] VITALS: BP 113/68
[2021-08-24] MEDS: BUMETANIDE 2.5mg/10ml (0.25 mg/ml) INJ IV SCH ×2 (06:22→17:55)
[2021-08-24 09:00] VITALS: BP 128/73
[2021-08-24] MEDS: POTASSIUM CHL 20 Meq TABLET PO SCH ×2 (09:39→21:11)
[2021-08-24] MEDS: ASCORBIC ACID 500 MG TAB PO SCH ×2 (09:39→21:11)
[2021-08-24] MEDS: ENOXAPARIN SOD 40 MG/0.4 ML SYRINGE SC SCH (09:39)
[2021-08-24] MEDS: ZINC SULFATE 220mg CAP or TAB PO SCH (09:40)
[2021-08-24] MEDS: MULTIPLE VITAMIN TAB PO SCH (09:40)
[2021-08-24] MEDS: ACETAMINOPHEN 500 MG TAB PO PRN (11:52)
[2021-08-24 12:56] VITALS: BP 104/71
[2021-08-24 17:00] VITALS: BP 116/72
[2021-08-24 20:00] VITALS: BP 104/68
[2021-08-24 22:00] VITALS: BP 104/68
[2021-08-25 02:50] VITALS: BP 128/88
[2021-08-25 05:00] VITALS: BP 128/88
[2021-08-25] MEDS: BUMETANIDE 2.5mg/10ml (0.25 mg/ml) INJ IV SCH (06:13)
== END 2021-08-25 05:00 | disposition home or self-care (01) | DRG 293 ==
LOC: ER 17:05 → OVERFLOW 22:32 → TELE-CENTR 08-22 14:08
PROVIDERS: ADMIT Internal Medicine; ATTEND Internal Medicine
DX: I50.43 Acute on chronic combined systolic (congestive) and diastolic (congestive) heart failure (principal); I25.5 Ischemic cardiomyopathy; Z20.822 Contact with and (suspected) exposure to COVID-19; I25.10 Atherosclerotic heart disease of native coronary artery without angina pectoris; Z95.1 Presence of aortocoronary bypass graft; Z82.49 Family history of ischemic heart disease and other diseases of the circulatory system; I35.0 Nonrheumatic aortic (valve) stenosis
CPT/HCPCS: 36415; 71045; 80053; 83605; 83735; 83880; 84484; 85025; 85379; 85610; 85730; 87040; 87426; 93005; 93306; 96372; 96374; 96375; 96376; G0378

== ENCOUNTER → 2024-07-09 | Outpatient (CLI) | payer OTHER ==
[~2024-07-09] MED LIST changes: +ATOR10TA52 PO; +DOCU-265 PO; -ENAL10TA13 PO; +ENAL1TAB47 PO; +FAMO-12 PO; +FLUT1AER17 INH; +FOLI-119 PO; +FURO40TA4 PO; +MET25T PO
[2024-07-09 08:54] LABS: Urine Bacteria None Seen /hpf (None Seen)
[2024-07-09 09:05] LABS: Urine Blood Negative /uL (Negative); Urine Clarity Clear (Clear); Urine Color Yellow (Yellow); Urine Mucus FEW (None Seen); Urine Protein, UAD TRACE (Negative); Urine Urobilinogen 3 mg/dL (Negative); Urine WBC 1 /hpf (0 - 3)
[2024-07-09 09:13] LABS: Basophils # (auto) 0.1 10 ^3/uL (0-0.2); Basophils % (auto) 1.3 % (0.0-2.0); Eosinophils # (auto) 0.1 10 ^3/uL (0-0.8); Hematocrit 48.9 % (41.0-53.0); Hemoglobin 16.5 g/dL (13.5-17.5); Lymphocytes # (auto) 2.4 10 ^3/uL (0.4-5.4); Lymphocytes % (auto) 48.4 % (10.0-50.0); Mean Corpuscular Hemoglobin 35.2 pg (28.0-32.0); Mean Corpuscular Hgb Conc. 33.8 g/dL (32.0-36.0); Mean Corpuscular Volume 104.3 fL (80.0-100.0); Monocytes # (auto) 0.5 10 ^3/uL (0-1.3); Monocytes % (auto) 10.4 % (0.0-12.0); Neutrophils # (auto) 1.9 10 ^3/uL (1.6-8.6); Neutrophils % (auto) 36.9 % (37.0-80.0); Nucleated Red Blood Cells % 0.2 %; Platelet Count (auto) 158 10^3/uL (140-450); Red Blood Cells 4.69 10^6/uL (4.5-5.90); Red Cell Distribution Width 13.2 % (11.8-14.3)
[2024-07-09 09:55] LABS: Alanine Aminotransferase 232 U/L (7-40); Albumin 4.4 g/dL (3.2-4.8); Alkaline Phosphatase 88 U/L (46-116); Anion Gap 7 (5-15); Aspartate Aminotransferase 177 U/L (13-40); BUN/Creatinine Ratio 14.9 (10.0-20.0); Blood Urea Nitrogen 13 mg/dL (9-23); Calcium 9.8 mg/dL (8.7-10.4); Carbon Dioxide 23 mmol/L (20-31); Chloride 109 mmol/L (98-107); Cholesterol 169 mg/dL (< 200); Glucose 103 mg/dL (74-106); HDL Cholesterol 45 mg/dL (40-59); LDL Cholesterol 110 mg/dL (< 100); Potassium 4.2 mmol/L (3.5-5.1); Sodium 139 mmol/L (136-145); Triglycerides 101 mg/dL (< 150)
[2024-07-09 09:56] LABS: Bilirubin, Total 1.1 mg/dL (0.2-1.0); Total Protein 7.9 g/dL (5.7-8.2)
[2024-07-09 11:08] LABS: Prostate Specific Antigen 0.26 ng/mL (0.0-4.0)
[2024-07-09 11:09] LABS: % Iron Saturation 52.5 % (20-55)
[2024-07-09 11:27] LABS: Uric Acid 6.3 mg/dL (3.7-9.2)
== END | disposition home or self-care (01) ==
LOC: LAB 08:28
PROVIDERS: ATTEND Family Medicine
DX: Z00.00 Encounter for general adult medical examination without abnormal findings (principal); R79.89 Other specified abnormal findings of blood chemistry; E55.9 Vitamin D deficiency, unspecified; R53.83 Other fatigue
CPT/HCPCS: 36415; 80053; 80061; 81001; 82306; 82607; 83036; 83540; 83550; 83735; 84153; 84443; 84550; 85025; 87086

== ENCOUNTER 2025-07-26 07:21 | Outpatient (CLI) | payer OTHER ==
[2025-07-26 07:52] LABS: Hemoglobin 15.7 g/dL (13.5-17.5)
[2025-07-26 07:54] LABS: Hematocrit 44.6 % (41.0-53.0); Mean Corpuscular Hemoglobin 35.4 pg (28.0-32.0); Mean Corpuscular Volume 100.2 fL (80.0-100.0); Nucleated Red Blood Cells % 0.3 %
[2025-07-26 08:33] LABS: Albumin 4.3 g/dL (3.2-4.8); Alkaline Phosphatase 90 U/L (46-116); Anion Gap 7 (5-15); BUN/Creatinine Ratio 15.3 (10.0-20.0); Bilirubin, Total 1.0 mg/dL (0.2-1.0); Blood Urea Nitrogen 13 mg/dL (9-23); Calcium 9.5 mg/dL (8.7-10.4); Carbon Dioxide 22 mmol/L (20-31); Cholesterol 164 mg/dL (< 200); Glucose 99 mg/dL (74-106); HDL Cholesterol 47 mg/dL (40-59); Potassium 4.3 mmol/L (3.5-5.1); Sodium 139 mmol/L (136-145); Total Protein 7.8 g/dL (5.7-8.2); Triglycerides 78 mg/dL (< 150)
[2025-07-26 08:36] LABS: Alanine Aminotransferase 159 U/L (7-40); Chloride 110 mmol/L (98-107); Urine Protein, UAD Negative (Negative)
[2025-07-26 09:17] LABS: Iron 165.0 ug/dL (65-175)
[2025-07-26 09:20] LABS: Total Iron Binding Capacity 340.0 ug/dL (250-425)
[2025-07-26 11:10] LABS: Free T4 (Free Thyroxine) 0.98 ng/dL (0.89-1.76); Prostate Specific Antigen 1.26 ng/mL (0.0-4.0)
== END 2025-07-26 17:00 | disposition home or self-care (01) ==
LOC: LAB 07:21
PROVIDERS: ATTEND Family Medicine
DX: I10 Essential (primary) hypertension (principal); K76.0 Fatty (change of) liver, not elsewhere classified; J30.9 Allergic rhinitis, unspecified; Z68.26 Body mass index [BMI] 26.0-26.9, adult; Z79.899 Other long term (current) drug therapy
CPT/HCPCS: 36415; 80053; 80061; 81001; 82043; 82306; 82607; 82746; 83036; 83540; 83550; 84153; 84439; 84443; 85025